=== PATIENT | female | born 1940 | race Caucasian/White ===

== ENCOUNTER 2022-03-21 07:16 | Emergency (ER) | payer MEDICARE, MEDICAID ==
[2022-03-21] MEDS ORDERED: Sodium Chloride 0.9% 10 ML Syringe FLUSH PRN (07:17)
[2022-03-21 07:37] VITALS: BP 118/60; PULSE 93
[2022-03-21] MEDS ORDERED: cefTRIAXone 2 GM in Sodium Chloride 0.9% 100 ML IV ONE (08:03)
[2022-03-21] MEDS ORDERED: Ondansetron 4 MG/2 ML SDV IV ONE (08:32)
[2022-03-21] MEDS ORDERED: Morphine 4 MG/ML Syringe IVPUSH ONE (08:33)
[2022-03-21 08:44] LABS: ANION GAP 13.5 mEq/L (7-13); CHLORIDE,CL 102 mmol/L (98-107); ESTIMATED GFR 28 mL/min (>=60); SODIUM,NA 139 mmol/L (136-145)
== END 2022-03-21 08:48 ==
LOC: DL.ED 07:16
DX: S72.001A Fracture of unspecified part of neck of right femur, initial encounter for closed fracture (principal); N39.0 Urinary tract infection, site not specified; F01.518 Vascular dementia, unspecified severity, with other behavioral disturbance; I11.0 Hypertensive heart disease with heart failure; I50.9 Heart failure, unspecified; Z79.899 Other long term (current) drug therapy; Z79.01 Long term (current) use of anticoagulants; Z90.710 Acquired absence of both cervix and uterus; W05.0XXA Fall from non-moving wheelchair, initial encounter
CPT/HCPCS: 36415; 71045; 72192; 80053; 81001; 83605; 83880; 85025; 85610; 87040; 87086; 96365; 96375; 99285; J0696; J2270; J2405; J3490